=== PATIENT | male | born 1980 | race Caucasian/White ===

== ENCOUNTER → 2017-06-17 | Outpatient (CLI) | payer OTHER | LOC: M CARPUL 08:55 | DX: R94.30 Abnormal result of cardiovascular function study, unspecified (principal) | CPT/HCPCS: 93306 ==

== ENCOUNTER 2017-08-05 17:30 | Emergency (ER) | payer OTHER | END 2017-08-05 18:33 | disposition home or self-care (01) | LOC: M ED 17:30 | DX: T81.4XXA Infection following a procedure, initial encounter (principal); Y92.9 Unspecified place or not applicable; Y93.9 Activity, unspecified; L03.011 Cellulitis of right finger | CPT/HCPCS: 99282 ==